=== PATIENT | male | born 1940 | race Caucasian/White ===

== ENCOUNTER 2016-09-12 15:16 | Emergency (ER) | payer OTHER ==
[~2016-09-12] VITALS: Ht 180.3 cm; Wt 118.2 kg
[~2016-09-12 15:16] MED LIST: ADVAIR IH; ALBUTEROL17 GM IH; ALLEGRA ALLERG180 MG PO; ALLEGRA180 MG PO; ALLOPURINOL300 MG PO; ASPIR 8181 M1 PO; ASPIRIN81 M1 PO; Aspirin E.C. PO; DIOVAN HCT 11 TABLET PO; FEXOFENADINE H180 M1 PO; LIPITOR20 MG PO; METOPROLOL PO; NITROGLYCERIN0.4 MG PO; NITROGLYCERIN0.4 MG SL; NITROSTAT0.4 MG SL; PLAVIX75 MG PO; PREVACID15 MG PO; PREVACID30 MG PO; PROAIR HFA8.5 GM; PROAIR HFA8.5 GM IH; TOPROL XL100 MG PO; TOPROL XL200 MG PO; XARELTO10 MG PO; XARELTO20 MG PO; Xarelto PO; ZYLOPRIM300 MG PO; aspirin PO
[2016-09-12 16:05] VITALS: BP 105/64
== END 2016-09-12 16:25 | disposition home or self-care (01) ==
LOC: EME 15:16
DX: I47.1 Supraventricular tachycardia (principal); J44.9 Chronic obstructive pulmonary disease, unspecified; I10 Essential (primary) hypertension; E78.5 Hyperlipidemia, unspecified; I25.2 Old myocardial infarction; Z87.891 Personal history of nicotine dependence; K21.9 Gastro-esophageal reflux disease without esophagitis; Z98.61 Coronary angioplasty status
CPT/HCPCS: 93005; 99281; 99284